=== PATIENT | female | born 1965 ===

== ENCOUNTER 2017-10-12 07:28 | Observation (INO) | payer OTHER ==
[2017-10-12] MEDS ORDERED: Sodium Chloride 0.9% 1,000 ML IV STA (07:56)
--- NOTE | 2017-10-12 07:59 | ED PDOC ---
HPI: Abdomen Time Seen by Provider: 10/12/17 07:49 Chief Complaint (Nursing): Abdominal Pain History Per: Patient Onset/Duration Of Symptoms: Days (2) Current Symptoms Are (Timing): Still Present Location Of Pain/Discomfort: Epigastric, Periumbilical Quality Of Discomfort: Sharp Associated Symptoms: Nausea, Vomiting. denies: Diarrhea Additional Complaint(s): Sharp epigastric and periumbilical pain assoc with nausea and vomiting since Sat nite. Denies fever or diarrhea Past Medical History Vital Signs: Last Vital Signs Temp 97 F L 10/12/17 07:47 Pulse 72 10/12/17 07:47 Resp 18 10/12/17 07:47 BP 141/87 10/12/17 07:47 Pulse Ox 100 10/12/17 07:59 - Medical History PMH: No Chronic Diseases - Surgical History Surgical History: Cholecystectomy - Family History Family History: States: Unknown Family Hx - Allergies Allergies/Adverse Reactions: Allergies Allergy/AdvReac Type Severity Reaction Status Date / Time tramadol Allergy DIZZINESS Verified 10/12/17 07:46 Review of Systems ROS Statement: Except As Marked, All Systems Reviewed And Found Negative Gastrointestinal: Positive for: Nausea, Vomiting, Abdominal Pain Physical Exam - Reviewed Nursing Documentation Reviewed: Yes Vital Signs Reviewed: Yes - Physical Exam Appears: Positive for: Non-toxic, Uncomfortable Head Exam: Positive for: ATRAUMATIC, NORMAL INSPECTION, NORMOCEPHALIC Skin: Positive for: Normal Color, Warm, DRY Eye Exam: Positive for: EOMI, Normal appearance, PERRL ENT: Positive for: Normal ENT Inspection Neck: Positive for: Normal, Painless ROM Cardiovascular/Chest: Positive for: Regular Rate, Rhythm Respiratory: Positive for: CNT, Normal Breath Sounds Gastrointestinal/Abdominal: Positive for: Bowel Sounds, Soft, Tenderness ( Epigastric and periumbilical tenderness) Back: Positive for: Normal Inspection Extremity: Positive for: Normal ROM Neurologic/Psych: Positive for: Alert, Oriented - Laboratory Results Result Diagrams: 10/12/17 08:09 10/12/17 08:09 - ECG O2 Sat by Pulse Oximetry: 100 Disposition - Clinical Impression Clinical Impression: Pancreatitis - Patient ED Disposition Is Patient to be Admitted: Yes - Disposition Disposition Time: 11:13 Condition: FAIR Forms: 911 View Connect (Macedonian) - Pt Status Changed To: Hospital Disposition Of: Observation - POA Present On Arrival: None
[2017-10-12 08:23] LABS: BASO % 0.2 % (0.0-2.0); EOS % 0.2 % (0.0-4.0); HEMOGLOBIN 12.1 g/dL (12.0-16.0); LYMPH # 1.7 K/uL (1.0-4.3); LYMPH % 9.3 % (20.0-40.0); MEAN CELL VOLUME 81.2 fl (81.0-99.0); MEAN CORPUSCULAR HEMOGLOBIN 27.1 pg (27.0-31.0); MEAN CORPUSCULAR HGB CONC 33.3 g/dL (33.0-37.0); MONO # 0.9 K/uL (0.0-0.8); MONO % 4.9 % (0.0-10.0); NEUT # 15.3 K/uL (1.8-7.0); NEUT % 85.4 % (50.0-75.0); NRBC % 0.1 % (0.0-0.0); PLATELET COUNT 278 K/uL (130-400); RBC 4.46 Mil/uL (3.80-5.20); RED CELL DISTRIBUTION WIDTH 13.8 % (11.5-14.5); WHITE BLOOD COUNT 17.9 K/uL (4.8-10.8)
[2017-10-12 08:30] LABS: CALCIUM 8.7 mg/dL (8.4-10.2); GFR AFRICAN-AMERICAN > 60; GFR NON-AFRICAN AMERICAN > 60; LIPASE 225 U/L (23-300)
[2017-10-12 08:33] LABS: ALB/GLOB RATIO 1.1 (1.0-2.1); ALBUMIN 3.8 g/dL (3.5-5.0); ALT/SGPT 27 U/L (9-52); AST/SGOT 37 U/L (14-36); BLOOD UREA NITROGEN 11 mg/dl (7-17)
[2017-10-12] MEDS ORDERED: Sodium Chloride 0.9% 100 ML ONE (09:54)
[2017-10-12] MEDS ORDERED: Iohexol 300 100 ML IJ ONE (09:54)
--- NOTE | 2017-10-12 10:37 | CT ---
PROCEDURE: CT Abdomen and Pelvis with contrast HISTORY: Abd pain COMPARISON: None available. TECHNIQUE: Contrast dose: 95 cc Omnipaque 300 Radiation dose: Total exam DLP = 953.35 mGy-cm. This CT exam was performed using one or more of the following dose reduction techniques: Automated exposure control, adjustment of the mA and/or kV according to patient size, and/or use of iterative reconstruction technique. FINDINGS: LOWER THORAX: No visible consolidation, pleural effusion, or pneumothorax. Subpleural 2 mm left lower lobe pulmonary nodule (series 5, image 2). LIVER: Unremarkable. GALLBLADDER AND BILE DUCTS: Gallbladder is not visualized. PANCREAS: Pancreatic prominence and pancreatic/peripancreatic edema/inflammatory stranding. Appearance consistent with acute pancreatitis. Correlate with amylase and lipase. SPLEEN: Unremarkable. ADRENALS: Unremarkable. KIDNEYS AND URETERS: The kidneys enhance symmetrically. No hydronephrosis or obstructing calculus identified. VASCULATURE: No aortic aneurysm. BOWEL: Stomach is nondistended. Nonspecific gastric wall thickening may be exaggerated by under distension. Correlate clinically for possibility of gastritis. Lack of oral contrast limits evaluation for bowel pathology. Bowel loops appear within normal limits of caliber without evidence of obstruction. Mild mucosal thickening of the left colon may be exaggerated by under distension ; correlate clinically for possibility of colitis. APPENDIX: The appendix appears within normal limits of caliber. No secondary signs of acute appendicitis. PERITONEUM: Small pelvic free fluid. No definite free air. LYMPH NODES: No bulky adenopathy identified. BLADDER: Under distended urinary bladder appears otherwise grossly unremarkable. REPRODUCTIVE: The uterus is present. Probable bilateral ovarian cysts. BONES: No acute osseous abnormality is detected. OTHER FINDINGS: Tiny fat containing umbilical hernia. IMPRESSION: Pancreatic prominence and pancreatic/peripancreatic edema/inflammatory stranding. Appearance consistent with acute pancreatitis. Correlate with amylase and lipase. Nonspecific gastric wall thickening may be exaggerated by under distension. Correlate clinically for possibility of gastritis. Mild mucosal thickening of the left colon may be exaggerated by under distension ; correlate clinically for possibility of colitis. The gallbladder is not visualized ; correlate with surgical history. Probable bilateral ovarian cysts. Pelvic ultrasound may be considered if indicated. Small pelvic free fluid. Subpleural 2 mm left lower lobe pulmonary nodule. In the absence of risk factors for lung cancer, no specific imaging follow-up is required. If the patient is a smoker or has other risk factors, follow-up CT at 12 months is recommended to document stability. Additional findings as above.
[2017-10-12 11:36] LABS: BASOPHIL 1 % (0-2); LYMPHOCYTE 11 % (20-50); MONOCYTE 5 % (0-10); NEUTROPHIL 83 % (42-75); PLATELET ESTIMATE NORMAL (NORMAL); TOTAL CELLS COUNTED 100
--- NOTE | 2017-10-12 12:03 | CP.PCM.HP ---
History of Present Illness - History of Present Illness History of Present Illness: 52F PMSH cholecystectomy, presents with a two day history of anorexia and one day history of 10/10 sharp waxing and waxing midepigastric pain in a bandlike distribution radiating to her back and shoulder. Patient admits to eating a heavily greasy diet 2 days ago, however triglycerides WNL, denies any ETOH use. Lipase 225, normal transaminases, CT Abd + pancreatitis. Pt is NPO, LR @ 200, pain control. HD stable, NAD. ROS: per HPI all other systems reviewed and negative Present on Admission - Present on Admission Any Indicators Present on Admission: No Past Patient History - Past Social History Smoking Status: Never Smoked - PSYCHIATRIC Hx Substance Use: No - SURGICAL HISTORY Hx Cholecystectomy: Yes - ANESTHESIA Hx Anesthesia: Yes Hx Anesthesia Reactions: No Meds Allergies/Adverse Reactions: Allergies Allergy/AdvReac Type Severity Reaction Status Date / Time tramadol Allergy DIZZINESS Verified 10/12/17 07:46 Physical Exam - Constitutional Appears: Non-toxic, No Acute Distress - Head Exam Head Exam: ATRAUMATIC, NORMOCEPHALIC - Eye Exam Eye Exam: EOMI, Normal appearance, PERRL Pupil Exam: NORMAL ACCOMODATION - ENT Exam ENT Exam: Mucous Membranes Moist, Normal Oropharynx - Respiratory Exam Respiratory Exam: Clear to Auscultation Bilateral, NORMAL BREATHING PATTERN - Cardiovascular Exam Cardiovascular Exam: RRR, +S1, +S2 - GI/Abdominal Exam GI & Abdominal Exam: Normal Bowel Sounds, Soft, Tenderness. absent: Guarding, Mass, Rebound - Extremities Exam Extremities exam: Positive for: normal capillary refill, pedal pulses present - Back Exam Back exam: absent: CVA tenderness (L), CVA tenderness (R) - Neurological Exam Neurological exam: Alert, Oriented x3 - Psychiatric Exam Psychiatric exam: Normal Affect, Normal Mood - Skin Skin Exam: Dry, Warm Results - Vital Signs Recent Vital Signs: Last Vital Signs Temp 97 F L 10/12/17 07:47 Pulse 72 10/12/17 07:47 Resp 18 10/12/17 07:47 BP 141/87 10/12/17 07:47 Pulse Ox 100 10/12/17 11:13 - Labs Result Diagrams: 10/12/17 08:09 10/12/17 08:09 Labs: Laboratory Results - last 24 hr 10/12/17 10/12/17 08:09 08:09 WBC 17.9 H RBC 4.46 Hgb 12.1 Hct 36.2 MCV 81.2 MCH 27.1 MCHC 33.3 RDW 13.8 Plt Count 278 MPV 10.0 Neut % (Auto) 85.4 H Lymph % (Auto) 9.3 L [place] % (Auto) 4.9 Eos % (Auto) 0.2 Baso % (Auto) 0.2 Neut # (Auto) 15.3 H Lymph # (Auto) 1.7 [place] # (Auto) 0.9 H Eos # (Auto) 0.0 Baso # (Auto) 0.0 Neutrophils % (Manual) 83 H Lymphocytes % (Manual) 11 L Monocytes % (Manual) 5 Basophils % (Manual) 1 Platelet Estimate Normal RBC Morphology Normal Sodium 138 Potassium 4.2 Chloride 100 Carbon Dioxide 23 Anion Gap 19 BUN 11 Creatinine 0.5 L Est GFR ( Amer) > 60 Est GFR (Non-Af Amer) > 60 Random Glucose 130 H Calcium 8.7 Total Bilirubin 0.7 AST 37 H ALT 27 Alkaline Phosphatase 68 Total Protein 7.1 Albumin 3.8 Globulin 3.3 Albumin/Globulin Ratio 1.1 Lipase 225 Assessment & Plan - Assessment and Plan (Free Text) Plan: 52F [facility] cholecystectomy, presents with a two day history of anorexia and one day history of 10/10 sharp waxing and waxing midepigastric pain in a bandlike distribution radiating to her back and shoulder. Nausea, no diarrhea. Patient admits to eating a heavily greasy diet 2 days ago, however triglycerides WNL, denies any ETOH use. Lipase 225, normal transaminases, CT Abd + pancreatitis. Pt is NPO, LR @ 200, pain control. HD stable, NAD. Pancreatitis presented with severe abd pain radiating to back and shoulder s/p meka, denies ETOH, no home meds or herbal supplements, normal trigs lipase 225, WBC 17.9 NPO, LR @ 200 cc/hr pain control Morphine 2 mg Q6 PRN Severe pain VTE ppx Lovenox
[2017-10-12] MEDS: Lactated Ringer's 1,000 ML IV SCH ×4 (12:07→23:06)
[2017-10-12 12:12] LABS: HDL CHOLESTEROL 58 MG/DL (30-70)
[2017-10-12 12:23] LABS: LDL CHOLESTEROL 80 mg/dL (0-129)
[2017-10-13] MEDS: Lactated Ringer's 1,000 ML IV SCH ×4 (04:18→22:45)
[2017-10-13 06:20] LABS: BASO # 0.1 K/uL (0.0-0.2); BASO % 0.3 % (0.0-2.0); EOS % 0.2 % (0.0-4.0); HEMOGLOBIN 11.7 g/dL (12.0-16.0); LYMPH # 1.6 K/uL (1.0-4.3); LYMPH % 10.1 % (20.0-40.0); MEAN CORPUSCULAR HEMOGLOBIN 26.6 pg (27.0-31.0); MEAN CORPUSCULAR HGB CONC 32.5 g/dL (33.0-37.0); MEAN PLATELET VOLUME 9.9 fl (7.2-11.7); MONO # 1.3 K/uL (0.0-0.8); MONO % 7.8 % (0.0-10.0); NEUT # 13.1 K/uL (1.8-7.0); NEUT % 81.6 % (50.0-75.0); RBC 4.38 Mil/uL (3.80-5.20); RED CELL DISTRIBUTION WIDTH 13.9 % (11.5-14.5); WHITE BLOOD COUNT 16.1 K/uL (4.8-10.8)
[2017-10-13 06:47] LABS: ALB/GLOB RATIO 1.1 (1.0-2.1); ALBUMIN 3.1 g/dL (3.5-5.0); ALT/SGPT 23 U/L (9-52); AST/SGOT 20 U/L (14-36); BLOOD UREA NITROGEN 5 mg/dl (7-17); CALCIUM 7.6 mg/dL (8.4-10.2); GFR AFRICAN-AMERICAN > 60; GFR NON-AFRICAN AMERICAN > 60; LIPASE 334 U/L (23-300)
[2017-10-13] MEDS: Enoxaparin 40 mg Syringe SC SCH (09:28)
--- NOTE | 2017-10-13 16:35 | CP.PCM.PN ---
Subjective - Date & Time of Evaluation Date of Evaluation: 10/13/17 Time of Evaluation: 11:30 - Subjective Subjective: Patient seen and examined bedside. Still complaining of abdominal pain localized to RUQ radiating to the flank and back.Able to tolerate liquid diet today Hemodynamically stable, afebrile WBC still elevated 16 K Lipase mildly elevated 334 Objective - Vital Signs/Intake and Output Vital Signs (last 24 hours): Temp Pulse Resp BP Pulse Ox 99.7 F H 91 H 20 101/69 96 10/13/17 15:43 10/13/17 08:11 10/13/17 15:43 10/13/17 15:43 10/13/17 15:43 Intake and Output: 10/13/17 10/13/17 06:59 18:59 Intake Total 75 Balance 75 - Medications Medications: Current Medications Enoxaparin Sodium (Lovenox) 40 mg SC DAILY [facility] PRN Reason: Protocol Last Admin: 10/13/17 09:28 Dose: 40 mg Lactated Ringer's (Lactated Ringer's 500ml) 1,000 mls @ 200 mls/hr IV .Q5H [facility] Last Admin: 10/13/17 12:35 Dose: 200 mls/hr Morphine Sulfate (Morphine) 2 mg IVP Q6 PRN PRN Reason: Pain, severe (8-10) Last Admin: 10/13/17 06:05 Dose: 2 mg Morphine Sulfate (Morphine) 1 mg IVP Q6 PRN PRN Reason: Pain, moderate (4-7) Last Admin: 10/13/17 09:41 Dose: 1 mg Ondansetron HCl (Zofran Inj) 4 mg IVP Q4 PRN PRN Reason: Nausea/Vomiting Last Admin: 10/12/17 14:22 Dose: 4 mg Pantoprazole Sodium (Protonix Ec Tab) 40 mg PO DAILY [place] - Labs Labs: 10/13/17 06:05 10/13/17 06:05 - Constitutional Appears: Non-toxic, No Acute Distress - Head Exam Head Exam: ATRAUMATIC, NORMAL INSPECTION, NORMOCEPHALIC - Eye Exam Eye Exam: EOMI, Normal appearance, PERRL Pupil Exam: NORMAL ACCOMODATION - ENT Exam ENT Exam: Mucous Membranes Moist, Normal Exam - Neck Exam Neck Exam: Full ROM, Normal Inspection - Respiratory Exam Respiratory Exam: Clear to Ausculation Bilateral. absent: Rales, Rhonchi, Wheezes - Cardiovascular Exam Cardiovascular Exam: REGULAR RHYTHM, RRR, +S1, +S2. absent: JVD - GI/Abdominal Exam GI & Abdominal Exam: Tenderness (on palpation epigastric RUQ LUQ mid abdomen ), Normal Bowel Sounds. absent: Guarding, Hernia, Mass, Rebound - Rectal Exam Rectal Exam: Deferred - Extremities Exam Extremities Exam: Full ROM, Normal Capillary Refill, Normal Inspection. absent : Pedal Edema - Back Exam Back Exam: NORMAL INSPECTION - Neurological Exam Neurological Exam: Alert, Awake, CN II-XII Intact, Oriented x3 - Psychiatric Exam Psychiatric exam: Normal Affect, Normal Mood - Skin Skin Exam: Dry, Intact, Normal Color, Warm Assessment and Plan - Assessment and Plan (Free Text) Assessment: 52 y/o F with PMH of cholecystectomy, presented with a two day history of anorexia and one day history of 10/10 sharp waxing and waning midepigastric pain in a bandlike distribution radiating to her back and shoulder. Nausea, no diarrhea. Patient admits to eating a heavily greasy diet 2 days ago, however triglycerides WNL, denies any ETOH use. Lipase mildly elevated 334 , normal transaminases. CT Abd showed : Pancreatic prominence and pancreatic/peripancreatic edema/inflammatory stranding . Appearance consistent with acute pancreatitis. Correlate with amylase and lipase. Nonspecific gastric wall thickening may be exaggerated by under distension. Correlate clinically for possibility of gastritis. Mild mucosal thickening of the left colon may be exaggerated by under distension ; correlate clinically for possibility of colitis. The gallbladder is not visualized ; correlate with surgical history. Probable bilateral ovarian cysts. Pelvic ultrasound may be considered if indicated. Small pelvic free fluid. Subpleural 2 mm left lower lobe pulmonary nodule. In the absence of risk factors for lung cancer, no specific imaging follow-up is required. If the patient is a smoker or has other risk factors, follow-up CT at 12 months is recommended to document stability. 1.Abdominal pain unclear etiology possible related to acute pancreatitis and or gastritis Start Protonix daily Continue IVF , pain management PRN Started diet and advance as tolerated Repeat CBc in AM 2. Leukocytosis WBC 16 K . Most likely reactive secondary to pancreatitis No other source of infection obvious Repeat in AM 3.VTE ppx Lovenox
[2017-10-13] MEDS: Pantoprazole 40 mg EC Tab PO SCH (17:34)
[2017-10-14 06:02] LABS: HEMOGLOBIN 10.5 g/dL (12.0-16.0); MEAN CELL VOLUME 82.1 fl (81.0-99.0); MEAN CORPUSCULAR HEMOGLOBIN 26.4 pg (27.0-31.0); MEAN CORPUSCULAR HGB CONC 32.2 g/dL (33.0-37.0); RBC 3.98 Mil/uL (3.80-5.20); RED CELL DISTRIBUTION WIDTH 13.7 % (11.5-14.5); WHITE BLOOD COUNT 16.7 K/uL (4.8-10.8)
[2017-10-14 06:40] LABS: ALBUMIN 2.9 g/dL (3.5-5.0); ALT/SGPT 30 U/L (9-52); AST/SGOT 19 U/L (14-36); BLOOD UREA NITROGEN 7 mg/dl (7-17); CALCIUM 8.1 mg/dL (8.4-10.2); GFR AFRICAN-AMERICAN > 60; GFR NON-AFRICAN AMERICAN > 60; LIPASE 154 U/L (23-300)
[2017-10-14] MEDS: Lactated Ringer's 1,000 ML IV SCH ×2 (06:46)
[2017-10-14 07:44] VITALS: RESP 20; O2SAT 94
[2017-10-14] MEDS: Pantoprazole 40 mg EC Tab PO SCH (08:55)
[2017-10-14] MEDS: Enoxaparin 40 mg Syringe SC SCH (08:55)
[2017-10-14 08:58] LABS: SQUAMOUS EPITHIAL 18 /hpf (0-5); URINE BACTERIA RARE (<OCC); URINE BILIRUBIN NEGATIVE (NEGATIVE); URINE BLOOD SMALL (NEGATIVE); URINE CLARITY CLOUDY (Clear); URINE COLOR AMBER (YELLOW); URINE GLUCOSE (UA) NEG (Normal); URINE LEUKOCYTE ESTERASE NEG Leu/uL (Negative); URINE PROTEIN 100 mg/dL (NEGATIVE)
[2017-10-14 09:27] VITALS: BP 122/81; PULSE 83; TEMP 99
--- NOTE | 2017-10-14 09:31 | CP.PCM.DIS ---
Provider - Provider Date of Admission: 10/12/17 11:14 Attending physician: Zoey Myers DO Primary care physician: None Time Spent in preparation of Discharge (in minutes): 15 Hospital Course - Lab Results Lab Results: Most Recent Lab Values WBC 16.7 K/uL (4.8-10.8) H 10/14/17 05:40 RBC 3.98 Mil/uL (3.80-5.20) 10/14/17 05:40 Hgb 10.5 g/dL (12.0-16.0) L 10/14/17 05:40 Hct 32.7 % (34.0-47.0) L 10/14/17 05:40 MCV 82.1 fl (81.0-99.0) 10/14/17 05:40 MCH 26.4 pg (27.0-31.0) L 10/14/17 05:40 MCHC 32.2 g/dL (33.0-37.0) L 10/14/17 05:40 RDW 13.7 % (11.5-14.5) 10/14/17 05:40 Plt Count 212 K/uL (130-400) 10/14/17 05:40 MPV 9.9 fl (7.2-11.7) 10/13/17 06:05 Neut % (Auto) 81.6 % (50.0-75.0) H 10/13/17 06:05 Lymph % (Auto) 10.1 % (20.0-40.0) L 10/13/17 06:05 [place] % (Auto) 7.8 % (0.0-10.0) 10/13/17 06:05 Eos % (Auto) 0.2 % (0.0-4.0) 10/13/17 06:05 Baso % (Auto) 0.3 % (0.0-2.0) 10/13/17 06:05 Neut # (Auto) 13.1 K/uL (1.8-7.0) H 10/13/17 06:05 Lymph # (Auto) 1.6 K/uL (1.0-4.3) 10/13/17 06:05 [place] # (Auto) 1.3 K/uL (0.0-0.8) H 10/13/17 06:05 Eos # (Auto) 0.0 K/uL (0.0-0.7) 10/13/17 06:05 Baso # (Auto) 0.1 K/uL (0.0-0.2) 10/13/17 06:05 Neutrophils % (Manual) 83 % (42-75) H 10/12/17 08:09 Lymphocytes % (Manual) 11 % (20-50) L 10/12/17 08:09 Monocytes % (Manual) 5 % (0-10) 10/12/17 08:09 Basophils % (Manual) 1 % (0-2) 10/12/17 08:09 Platelet Estimate Normal (NORMAL) 10/12/17 08:09 RBC Morphology Normal (NORMAL) 10/12/17 08:09 Sodium 140 mmol/l (132-148) 10/14/17 05:40 Potassium 3.8 MMOL/L (3.6-5.0) 10/14/17 05:40 Chloride 100 mmol/L (98-107) 10/14/17 05:40 Carbon Dioxide 29 mmol/L (22-30) 10/14/17 05:40 Anion Gap 15 (10-20) 10/14/17 05:40 BUN 7 mg/dl (7-17) 10/14/17 05:40 Creatinine 0.7 mg/dl (0.7-1.2) 10/14/17 05:40 Est GFR ( Amer) > 60 10/14/17 05:40 Est GFR (Non-Af Amer) > 60 10/14/17 05:40 Random Glucose 90 mg/dL (65-105) 10/14/17 05:40 Calcium 8.1 mg/dL (8.4-10.2) L 10/14/17 05:40 Total Bilirubin 0.3 mg/dl (0.2-1.3) 10/14/17 05:40 AST 19 U/L (14-36) 10/14/17 05:40 ALT 30 U/L (9-52) 10/14/17 05:40 Alkaline Phosphatase 84 U/L (38-126) 10/14/17 05:40 Total Protein 5.8 G/DL (6.3-8.2) L 10/14/17 05:40 Albumin 2.9 g/dL (3.5-5.0) L 10/14/17 05:40 Globulin 2.9 gm/dL (2.2-3.9) 10/14/17 05:40 Albumin/Globulin Ratio 1.0 (1.0-2.1) 10/14/17 05:40 Triglycerides 81 mg/DL (0-149) 10/12/17 11:58 Cholesterol 160 mg/dL (0-199) 10/12/17 11:58 LDL Cholesterol Direct 80 mg/dL (0-129) 10/12/17 11:58 HDL Cholesterol 58 MG/DL (30-70) 10/12/17 11:58 Lipase 154 U/L (23-300) 10/14/17 05:40 Urine Color Daniella (YELLOW) 10/14/17 08:45 Urine Clarity Cloudy (Clear) 10/14/17 08:45 Urine pH 5.0 (5.0-8.0) 10/14/17 08:45 Ur Specific [place] 1.024 (1.003-1.030) 10/14/17 08:45 Urine Protein 100 mg/dL (NEGATIVE) 10/14/17 08:45 Urine Glucose (UA) Neg mg/dL (Normal) 10/14/17 08:45 Urine Ketones 80 mg/dL (NEGATIVE) 10/14/17 08:45 Urine Blood Small (NEGATIVE) 10/14/17 08:45 Urine Nitrate Negative (NEGATIVE) 10/14/17 08:45 Urine Bilirubin Negative (NEGATIVE) 10/14/17 08:45 Urine Urobilinogen 4.0 mg/dL (0.2-1.0) H 10/14/17 08:45 Ur Leukocyte Esterase Neg [place]/uL (Negative) 10/14/17 08:45 Urine RBC (Auto) 5 /hpf (0-3) H 10/14/17 08:45 Urine Microscopic WBC 3 /hpf (0-5) 10/14/17 08:45 Ur Squamous Epith Cells 18 /hpf (0-5) H 10/14/17 08:45 Urine Bacteria Rare (<OCC) 10/14/17 08:45 - Hospital Course Hospital Course: 52 y/o F with PMH of cholecystectomy, presented with a two day history of anorexia and one day history of 10/10 sharp waxing and waning mid epigastric pain in a band like distribution radiating to her back and shoulder. Nausea, no diarrhea. Patient admits to eating a heavily greasy diet 2 days ago, however triglycerides WNL, denies any ETOH use. Lipase mildly elevated 334 , normal transaminases. CT Abd showed : Pancreatic prominence and pancreatic/peripancreatic edema/inflammatory stranding . Appearance consistent with acute pancreatitis. Correlate with amylase and lipase. Nonspecific gastric wall thickening may be exaggerated by under distension. Correlate clinically for possibility of gastritis. Mild mucosal thickening of the left colon may be exaggerated by under distension ; correlate clinically for possibility of colitis. The gallbladder is not visualized ; correlate with surgical history. Probable bilateral ovarian cysts. Pelvic ultrasound may be considered if indicated. Small pelvic free fluid. Subpleural 2 mm left lower lobe pulmonary nodule. In the absence of risk factors for lung cancer, no specific imaging follow-up is required. If the patient is a smoker or has other risk factors, follow-up CT at 12 months is recommended to document stability. Patient was found to have elevated WBC count 17 K She was placed under observation in med/surg , started on IVF, pain medication . Patient clinically showed improvement , her pain resolved, tolerating po intake, afebrile but her WBC went down only to 16 K. Her Urinalysis sent and showed no nitrates, no LE, few bacteria and blood. At present she is hemodynamically stable, afebrile and will be traveling back home to [place] . At present there is no source of infection . Will discharge her home .Advised to follow up with PMD in 1 week for repeat CBC to monitor WBC count. 1.Abdominal pain possible multifactorial possible related to acute pancreatitis and or gastritis or passed a stone sincew pain was located on right upper abdomen and fdlan mostly and UA showed some blood Started Protonix daily Treated with IVF , pain management PRN Started diet and tolerating pain resolved , afebrile will d/c home F/u with PMD for leukocytosis 2.Leukocytosis possible reactive no fever , Ua - clear , no abdominal painm , no respiratory sx WBC 16 K Follow up with PMD to repeat CBC Discharge Exam - Head Exam Head Exam: ATRAUMATIC, NORMAL INSPECTION, NORMOCEPHALIC - Eye Exam Eye Exam: EOMI, Normal appearance, PERRL Pupil Exam: NORMAL ACCOMODATION - ENT Exam ENT Exam: Mucous Membranes Moist, Normal Exam - Neck Exam Neck exam: Full Rom, Normal Inspection - Respiratory Exam Respiratory Exam: Clear to PA & Lateral, NORMAL BREATHING PATTERN. absent: Rales, Rhonchi, Wheezes - Cardiovascular Exam Cardiovascular Exam: REGULAR RHYTHM, RRR, +S1, +S2. absent: JVD - GI/Abdominal Exam GI & Abdominal Exam: Normal Bowel Sounds, Soft. absent: Distended, Guarding, Rebound, Tenderness - Rectal Exam Rectal Exam: Deferred - Extremities Exam Extremities exam: normal capillary refill, normal inspection, pedal pulses present - Back Exam Back exam: NORMAL INSPECTION - Neurological Exam Neurological exam: Alert, CN II-XII Intact, Oriented x3, Reflexes Normal - Psychiatric Exam Psychiatric exam: Normal Affect, Normal Mood - Skin Skin Exam: Dry, Intact, Normal Color, Warm Discharge Plan - Discharge Medications Prescriptions: Pantoprazole [Protonix EC Tab] 40 mg PO DAILY #30 ect - Follow Up Plan Condition: STABLE Disposition: HOME/ ROUTINE Patient education suggested?: Yes Instructions: Pancreatitis (DC) Additional Instructions: follow up with your primary MD 1week.
== END 2017-10-14 09:59 | disposition home or self-care (01) ==
LOC: H.ER 07:28 → H.ERHOLD 11:14 → H.MEDSURG1 12:42
PROVIDERS: ADMIT Student in an Organized Health Care Education/Training Program; ATTEND Student in an Organized Health Care Education/Training Program
DX: R10.13 Epigastric pain (principal); R63.0 Anorexia; D72.829 Elevated white blood cell count, unspecified; Z88.6 Allergy status to analgesic agent
CPT/HCPCS: 36415; 74177; 80053; 80061; 81025; 83690; 85025; 96374; 99283; J1650; J2270; J2405; J7040; J7120; Q9967